=== PATIENT | female | born 1975 | race Caucasian/White ===

== ENCOUNTER → 2020-05-27 | Outpatient (CLI) | payer OTHER ==
[~2020-05-27] MED LIST: B-CO1TAB PO; MAGN250T9 PO; NORE0.3513 PO
[2020-05-27 08:42] LABS: BASOPHILS % (AUTO) 1 % (0-1); EOSINOPHILS % (AUTO) 2 % (1-7); LYMPHOCYTES % (AUTO) 28 % (22-44); MEAN CORPUSCULAR HEMOGLOBIN 30.1 pg (27.0-34.8); MEAN CORPUSCULAR HGB CONC 33.7 g/dL (32.4-35.8); MEAN PLATELET VOLUME 9.2 fL (7.4-10.4); MONOCYTES % (AUTO) 7 % (2-9); NEUTROPHILS % (AUTO) 61 % (42-75); PLATELET COUNT 167 x10^3/uL (130-400); RED BLOOD COUNT 4.93 x10^6/uL (3.82-5.3); RED CELL DISTRIBUTION WIDTH 13.6 % (9.6-15.2)
[2020-05-27 08:53] LABS: ALANINE AMINOTRANSFERASE 23 U/L (12-78); ALBUMIN 3.9 g/dL (3.4-5.0); ANION GAP 4 mmol/L (5-15); CALCIUM 8.7 mg/dL (8.5-10.1); CHLORIDE 110 mmol/L (98-107); CREATININE 0.81 mg/dL (0.55-1.02)
[2020-05-27 08:58] LABS: ALKALINE PHOSPHATASE 44 U/L (45-117); BILIRUBIN,TOTAL 0.4 mg/dL (0.2-1.0); TOTAL PROTEIN 7.3 g/dL (6.4-8.2)
[2020-05-27 09:00] LABS: MD NO
[2020-05-27 09:54] LABS: MICROSCOPIC AUTO
== END | disposition home or self-care (01) ==
LOC: STAR 07:39
PROVIDERS: ATTEND Obstetrics & Gynecology Gynecology
DX: Z01.812 Encounter for preprocedural laboratory examination (principal); Z20.828 Contact with and (suspected) exposure to other viral communicable diseases
CPT/HCPCS: 80053; 81001; 84703; 85025; 87086; 87635

== ENCOUNTER 2021-02-08 08:48 | Outpatient (CLI) | payer OTHER ==
[~2021-02-08 08:48] MED LIST changes: -NORE0.3513 PO; +NORE0.3519 PO
== END 2021-02-08 23:59 | disposition home or self-care (01) ==
LOC: COVVAC 08:48
PROVIDERS: ATTEND Obstetrics & Gynecology
DX: Z20.822 Contact with and (suspected) exposure to COVID-19 (principal)
CPT/HCPCS: U0003; U0005

== ENCOUNTER 2021-02-12 07:37 | Inpatient (IN) | payer BC, OTHER ==
[~2021-02-12] VITALS: Ht 175.3 cm; Wt 131.8 kg
[2021-02-12 10:28] LABS: BASOPHILS % (AUTO) 1 % (0-1); EOSINOPHILS % (AUTO) 2 % (1-7); LYMPHOCYTES % (AUTO) 14 % (22-44); MEAN CORPUSCULAR HEMOGLOBIN 31.5 pg (27.0-34.8); MEAN CORPUSCULAR HGB CONC 34.7 g/dL (32.4-35.8); MEAN PLATELET VOLUME 9.8 fL (7.4-10.4); MONOCYTES % (AUTO) 6 % (2-9); NEUTROPHILS % (AUTO) 78 % (42-75); PLATELET COUNT 124 x10^3/uL (130-400); RED BLOOD COUNT 4.25 x10^6/uL (3.82-5.3); RED CELL DISTRIBUTION WIDTH 14.3 % (9.6-15.2)
[2021-02-12] MEDS ORDERED: METOCLOPRAMIDE 5 MG/ML, 2ML IV ONE (10:30)
[2021-02-12] MEDS ORDERED: LACTATED RINGERS 1,000 ML IVBOLUS ONE (10:30)
[2021-02-12] MEDS ORDERED: LACTATED RINGERS 1,000 ML IV SCH (10:30)
[2021-02-12] MEDS ORDERED: SODIUM CITRATE/CITRIC ACID 30 ML UDC PO ONE (10:30)
[2021-02-12] MEDS ORDERED: METOCLOPRAMIDE 5 MG/ML, 2ML ONE (10:31)
[2021-02-12] MEDS ORDERED: SODIUM CITRATE/CITRIC ACID 15 ML UDC ONE (10:31)
[2021-02-12] MEDS ORDERED: NEWBORN KIT ONE (10:31)
[2021-02-12] MEDS ORDERED: morphine SULFATE/PF 0.5 MG/ML, 10ML ONE (11:53)
[2021-02-12] MEDS ORDERED: CEFAZOLIN 1,000 MG ONE (11:56)
[2021-02-12] MEDS ORDERED: PHENYLEPHRINE 10 MG/ML ONE (11:56)
[2021-02-12] MEDS ORDERED: SODIUM CHLORIDE 0.9% PF 10ML ONE (11:56)
[2021-02-12] MEDS ORDERED: ONDANSETRON 2MG/ML, 2ML ONE (11:56)
[2021-02-12] MEDS ORDERED: OXYTOCIN 10 UNITS/ML, 1ML ONE (11:56)
[2021-02-12] MEDS ORDERED: DEXAMETHASONE 4 MG/ML, 1ML ONE (11:56)
[2021-02-12] MEDS ORDERED: MISOPROSTOL 200 MCG TABLET PR PRN (12:00)
[2021-02-12] MEDS ORDERED: ONDANSETRON 2MG/ML, 2ML IV PRN (12:00)
[2021-02-12] MEDS ORDERED: morphine SULFATE 10 MG/ML, 1ML IM PRN (12:00)
[2021-02-12] MEDS ORDERED: SIMETHICONE 80 MG CHEW TAB PO PRN (12:00)
[2021-02-12] MEDS ORDERED: CALCIUM CARBONATE 500 MG TAB.CHEW PO PRN (12:00)
[2021-02-12] MEDS ORDERED: OXYcodone/APAP 5/325MG TABLET PO PRN ×2 (12:00)
[2021-02-12] MEDS ORDERED: IBUPROFEN 600 MG TABLET PO PRN (12:00)
[2021-02-12] MEDS ORDERED: ACETAMINOPHEN 325 MG TABLET PO PRN (12:00)
[2021-02-12] MEDS ORDERED: morphine SULFATE 10 MG/ML, 1ML IVPush PRN (12:30)
[2021-02-12] MEDS ORDERED: MEASLES,MUMPS&RUBELLA VACC/PF 0.5 ML SQ-VACC PRN (13:00)
[2021-02-12] MEDS: LACTATED RINGERS 1,000 ML IV SCH ×4 (13:00→23:00)
[2021-02-12] MEDS ORDERED: DIPH,PERTUSS(ACELL),TET VAC/PF NC IM-VACC PRN (13:00)
[2021-02-12] MEDS: OXYTOCIN 30U/ 0.9% NaCL 500ML 500 ML IV SCH ×2 (13:50→22:00)
[2021-02-12] MEDS ORDERED: OXYcodone 5 MG/5 ML ORAL.SOL UDC ONE (14:08)
[2021-02-12 14:30] VITALS: BP 106/69
[2021-02-12] MEDS ORDERED: OXYcodone 5 MG/5 ML ORAL.SOL UDC PO PRN (14:30)
[2021-02-12] MEDS: KETOROLAC 30 MG/1 ML IV SCH (18:19)
[2021-02-12 19:33] VITALS: BP 108/74
[2021-02-12 21:55] LABS: BASOPHILS % (AUTO) 0 % (0-1); EOSINOPHILS % (AUTO) 0 % (1-7); LYMPHOCYTES % (AUTO) 9 % (22-44); MEAN CORPUSCULAR HGB CONC 34.2 g/dL (32.4-35.8); MEAN PLATELET VOLUME 9.9 fL (7.4-10.4); MONOCYTES % (AUTO) 6 % (2-9); NEUTROPHILS % (AUTO) 85 % (42-75); PLATELET COUNT 130 x10^3/uL (130-400); RED BLOOD COUNT 3.82 x10^6/uL (3.82-5.3); RED CELL DISTRIBUTION WIDTH 14.1 % (9.6-15.2)
[2021-02-12 23:45] VITALS: BP 102/66
[2021-02-13] MEDS: KETOROLAC 30 MG/1 ML IV SCH ×5 (00:05→23:42)
[2021-02-13] MEDS ORDERED: RHOGAM FROM BLOOD BANK 1 NOTE EA IM/IV ONE (00:30)
[2021-02-13 04:30] VITALS: BP 105/72
[2021-02-13] MEDS: LACTATED RINGERS 1,000 ML IV SCH ×7 (05:00→21:48)
[2021-02-13] MEDS ORDERED: DIPHENHYDRAMINE 50 MG/ML, 1ML IVPush PRN (07:00)
[2021-02-13] MEDS: DOCUSATE 100 MG CAPSULE PO PRN ×2 (07:22→19:20)
[2021-02-13] MEDS: PRENATAL VIT/IRON/FA 1 EACH TABLET PO SCH (07:22)
[2021-02-13 07:30] VITALS: BP 107/71
[2021-02-13] MEDS: OXYTOCIN 30U/ 0.9% NaCL 500ML 500 ML IV SCH ×3 (08:00→21:45)
[2021-02-13 12:00] VITALS: BP 111/77
[2021-02-13 19:10] VITALS: BP 117/78
[2021-02-14] MEDS: KETOROLAC 30 MG/1 ML IV SCH ×2 (05:47→11:53)
[2021-02-14 07:30] VITALS: BP 120/85
[2021-02-14] MEDS: DOCUSATE 100 MG CAPSULE PO PRN (09:23)
[2021-02-14] MEDS: PRENATAL VIT/IRON/FA 1 EACH TABLET PO SCH (09:23)
[2021-02-14] MEDS ORDERED: OXYC1TAB12 PO (09:59)
[2021-02-14] MEDS ORDERED: IBUP-1222 PO (09:59)
[2021-02-14] MEDS ORDERED: KETOROLAC 30 MG/1 ML ONE (11:50)
[2021-02-14] MEDS ORDERED: IBUPROFEN 600 MG TABLET PO PRN (12:00)
== END 2021-02-14 13:15 | disposition home or self-care (01) | DRG 785 ==
LOC: LDIP 10:10 → 2NW 14:21
PROVIDERS: ADMIT Obstetrics & Gynecology; ATTEND Obstetrics & Gynecology
PROC: 0UB70ZZ Excision of Bilateral Fallopian Tubes, Open Approach (ICD-10-PCS; principal; 2021-02-12)
PROC: 10D00Z1 Extraction of Products of Conception, Low, Open Approach (ICD-10-PCS; 2021-02-12)
DX: O34.83 Maternal care for other abnormalities of pelvic organs, third trimester (principal); N83.8 Other noninflammatory disorders of ovary, fallopian tube and broad ligament; O34.211 Maternal care for low transverse scar from previous cesarean delivery; Z30.2 Encounter for sterilization; O69.1XX0 Labor and delivery complicated by cord around neck, with compression, not applicable or unspecified; Z3A.37 37 weeks gestation of pregnancy; Z37.0 Single live birth
CPT/HCPCS: 36415; 85025; 85461; 86592; 86850; 86900; 88302; G0378; J0690; J1100; J1885; J2274; J2405; J2790; J2370; J2590; J2765; J7120